=== PATIENT | female | born 1965 | race Caucasian/White ===

== ENCOUNTER 2023-03-10 19:25 | Inpatient (IN) | payer BC ==
--- OUTSIDE RECORDS SUMMARY | 2023-03-10 19:28 | XMS REPORT | Continuity of Care Document ---
:1965 Author Organization [facility] t Address [address] 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 00:00: Hospit a region region 00 l without without myelopathy myelopathy or or radiculopa radiculopa thy thy Spondylosi Spondylosi Disease Active M ethodi s of s of 6-14 st lumbosacra lumbosacra 00:00: Ho spita l region l region 00 l without without myelopathy myelopathy or or radiculopa radiculopa thy thy Chronic Chronic Disease Active Methodi midline midline 02-03 low back low back 00:00: Hospit a pain pain 00 l without without sciatica sciatica Encounter Encounter Disease Active Met hodi for for 6-14 long-term long-term 00:00: Hosp [facility] (current) (current) 00 l use of use of high-risk high-risk medication medication Obesity Obesity Disease Active Methodi (BMI (BMI -14 st 35.0-39.9 35.0-39.9 00:00: Hosp [facility] without without 00 l comorbidit comorbidit y) y) Systemic Systemic Disease Active Metho di Rheumatoid Rheumatoid 03-10 arthritis arthritis 00:00: Hosp [facility]ya RF 219 CCP RF 219 CCP 00 l 250 250 Type 2 Type 2 Disease Active Methodi diabetes diabetes 03-10 mellitus mellitus 00:00: Hospit a without without 00 l complicati complicati on on Hypertensi Hypertensi Disease Active M ethodi on on 03-10 00:00: Hospita 00 l Allergies, Adverse Reactions, Alerts Allergy Allergy Status Severity Reaction(s) Onset Inactive Treating Comm ents Source Name Type Date Date Clinician No Known Propensi Active Method i Drug ty to 02-02 Allergie adverse 00:00: Hospita s reaction 00 l s to drug NO KNOWN Drug Active [facility] ALLERG Class ity of S [facility] Family History Family Member Diagnosis Comments Start Date Stop Date Source Natural sister Tuberculosis [facility] Natural sister Colon cancer [facility] Natural mother Alcohol abuse [facility] Natural mother Cirrhosis [facility] mother Tuberculosis [facility] Paternal grandfather Lung cancer [facility] Paternal grandmother Breast cancer [facility] Paternal grandmother Lung cancer [facility] Social History Social Habit Start Date Stop Date Quantity Comments Source Exposure to Not sure [facility] SARS-CoV-2 (event) [facility] Gender identity [facility] [place] Sexual orientation [facility] History of Social 2017-02-03 2017-02-03 [facility] function 00:00:00 00:00:00 Alcohol Comment 2016-02-03 2016-02-[address] [facility] [place] 00:00:00 00:00:00 Sex [birth year] [facility] 00:00:00 00:00:00 Smoking Status Start Date Stop Date Source Unknown if ever smoked [facility] Never smoked tobacco [facility] Medications Ordered Filled Start Stop Current Ordering Indication Dosage Frequency Signature Comments Components Source Medication Medication Date Date Medication? Clinician (SIG) Name Name HYDROcodone 2019- 2020- No 1{tbl} 1 tablet, Univers -acetaminop 08-30 Oral, ity of hen (NORCO 09:00: 08:08 ONCE, 1 Jacinto as 5) 5-325 mg 00 :00 dose, Sun Med ical tablet 1 06/30/[address] [facility] h tablet 0300, WILFRIDO acetaminoph 2019-08 Yes 4647 1{tbl} Take 1 Un bridgette en-codeine 1-08 tablet by ity of (TYLENOL-CO 00:00: mouth [place] DEINE #3) 00 every 6 Medical 300-30 mg (six) Branch tablet hours as needed for Pain (scale 7-10). Indication s: acute pain baclofen 2017-08 Yes TAKE 1-2 Metho di (LIORESAL) 1-[address] 10 MG 00:00: MOUTH Hospita tablet 00 EVERY l EVENING NEEDED FOR MUSCLE SPASM losartan Yes losartan Metho di (COZAAR) 4-[address] 100 MG 12:17: tablet Hospita tablet 12 l diazePAM Yes Take one Metho di (VALIUM) 10 1-[address] MG tablet 00:00: at 9pm Hospit a 00 every l night. Vital Signs Vital Name Observation Time Observation Value Comments Source Systolic blood 2020-06-30 07:27:00 169 mm[Hg[facility] Diastolic blood 2020-06-30 07:27:00 78 mm[Hg] [facility] Heart rate 2020-06-30 07:27:00 84 /min [facility] Body temperature 2020-06-30 07:27:00 38.17 Monik [facility] Respiratory rate 2020-06-30 07:27:00 18 /min [facility] Body height 2020-06-30 07:27:00 165.1 cm [facility] Body weight 2020-06-30 07:27:00 102.059 kg [facility] BMI 2020-06-30 07:27:00 37.44 kg/m2 [facility] Oxygen saturation in 2020-06-30 07:27:00 98 /min [facility] Arterial blood by [facility] Pulse oximetry Branch Procedures Procedure Date / Time Performed Performing Clinician Justenc e XR ANKLE 3+ VW LEFT 2020-06-30 08:19:49 Naye Caraballo [facility] NOTICE OF PRIVACY 2020-06-30 07:18:09 Doctor Unassigned, No [facility] CONSENT/REFUSAL FOR 2020-06-30 07:17:07 [facility] TREATMENT Plan of Care Planned Activity Planned Date Details Comments Source Future Scheduled 2023-02-10 [facility] Test 11:01:48 malignant neoplasm of colon (procedure) [code = 380214253] Future Scheduled 2023-02-10 [facility] Test 11:01:48 malignant neoplasm of colon (procedure) [code = 438012008] Future Scheduled 2023-02-10 [facility] Test 11:01:48 malignant neoplasm of colon (procedure) [code = 759511612] Future Scheduled 2023-02-10 [facility]:01:[facility] (#1) [code = COVID-19 VACCINE (#1)] Future Scheduled 2023-02-10 [facility] Test 11:01:48 malignant neoplasm of cervix (procedure) [code = 385838812] Future Scheduled 2023-02-10 [facility]48 S[facility]ENING [code = BREAST CANCER SCREENING] Future Scheduled 2023-02-10 [facility] 11:01:48 malignant neoplasm of colon (procedure) [code = 483570815] Future Scheduled 2023-02-10 [facility] Test 11:01:48 malignant neoplasm of colon (procedure) [code = 875670162] Future Scheduled 2023-02-10 SHINGLES VACCINES [facility] Test 11:01:48 (1 of 2) [code = SHINGLES VACCINES (1 of 2)] Future Scheduled 2023-02-10 [facility] 11:01:48 [code = INFLUENZA VACCINE] Encounters Start End Encounter Admission Attending Care Care Encounter Source Date/Time Date/Time Type Type Clinicians Facility Department ID 2022-09-01 2022-09-01 Outpatient ADELITA GREENBERG [facility] [id number] [place] 10:56:00 10:56:00 -[id number] [facility] 2020-06-30 2020-06-[address] [facility] [id number] [facility] 01:31:00 03:11:00 Naye Sanchez [id number] i ty of [place] [id number] [facility] [id number] [facility] 084 Branch 2020-06-30 2020-06-30 Emergency X ILYA NMCHETNA ERT [id number] [facility] 01:31:00 01:31:00 NAYE armstrong [facility] Results This patient has no known results.
--- NOTE | 2023-03-10 20:48 | ER ---
Nurse's Notes [facility] Name: Yaneth Caldwell Age: 57 yrs Sex: Female : 1965 Arrival Date: 03/10/2023 Time: 19:25 Bed 19 Private MD: Diagnosis: Allergy status to unspecified drugs, medicaments and biological substances status-Humaria;Fever, unspecified;Influenza due to unidentified influenza virus with other respiratory manifestations-flu B;Hypokalemia Presentation: 03/10 19:39 Chief complaint: Patient states: I had my first shot of angy on the 10 th and on the kd3 17th i noticed my cheeks were red and dry. And then in this morning i broke out in a fever and i had a head to toe rash. I contacted my doctor VIA telehealth but i don't know if i can take the medications they prescribed me with angy. Coronavirus screen: Vaccine status: Patient reports being unvaccinated. Ebola Screen: No symptoms or risks identified at this time. Onset: The symptoms/episode began/occurred gradually. Anaphylaxis evaluation, no signs or symptoms of anaphylaxis were noted. Initial Sepsis Screen: Does the patient meet any 2 criteria? No. Patient's initial sepsis screen is negative. Does the patient have a suspected source of infection? No. Patient's initial sepsis screen is negative. Risk Assessment: Do you want to hurt yourself or someone else? Patient reports no desire to harm self or others. Onset of symptoms was March 08, 2023. 19:39 Method Of Arrival: Wheelchair kd3 19:39 Acuity: ELVIA 3 kd3 Triage Assessment: 19:45 General: Appears uncomfortable, Behavior is calm, cooperative. Pain: Complains of pain kd3 in rash. Historical: - Allergies: 19:45 No Known Allergies; kd3 - Immunization history:: Adult Immunizations up to date. - Social history:: Smoking status: Patient denies any tobacco usage or history of. Screenin/20 00:04 [facility] ED Fall Risk Assessment (Adult) History of falling in the last 3 months, jb4 including since admission No falls in past 3 months (0 pts) Confusion or Disorientation No (0 pts) Score/Fall Risk Level 0 - 2 = Low Risk. Abuse screen: Denies threats or abuse. Nutritional screening: No deficits noted. Tuberculosis screening: No symptoms or risk factors identified. Assessment: 03/10 20:00 General: Appears in no apparent distress. uncomfortable, ill, Behavior is calm, jb4 cooperative, appropriate for age. Pain: Denies pain. Neuro: Level of Consciousness is awake, alert, obeys commands, Oriented to person, place, time, situation. Cardiovascular: Patient's skin is warm and dry. Respiratory: Airway is patent Respiratory effort is even, unlabored, Respiratory pattern is regular, symmetrical. GI: No signs and/or symptoms were reported involving the gastrointestinal system. : No signs and/or symptoms were reported regarding the genitourinary system. EENT: No signs and/or symptoms were reported regarding the EENT system. Derm: Skin is intact, Skin is pink, warm \T\ dry. 21:00 Reassessment: Patient appears in no apparent distress at this time. Patient and/or jb4 family updated on plan of care and expected duration. Pain level reassessed. Patient is alert, oriented x 3, equal unlabored respirations, skin warm/dry/pink. 22:00 Reassessment: Patient appears in no apparent distress at this time. Patient and/or jb4 family updated on plan of care and expected duration. Pain level reassessed. Patient is alert, oriented x 3, equal unlabored respirations, skin warm/dry/pink. 23:00 Reassessment: Patient appears in no apparent distress at this time. Patient and/or jb4 family updated on plan of care and expected duration. Pain level reassessed. Patient is alert, oriented x 3, equal unlabored respirations, skin warm/dry/pink. Vital Signs: 19:39 BP 121 / 66; Pulse 86; Resp 16; Pulse Ox 100% on R/A; kd3 19:39 Temp 99.2(O); kd3 19:39 Weight 101.15 kg; kd3 22:30 BP 104 / 53; Pulse 85; Resp 16; Pulse Ox 95% on R/A; jb4 23:14 BP 109 / 56; Pulse 78; Resp 16; Pulse Ox 97% ; jb4 ED Course: 19:27 Patient arrived in ED. am2 19:45 Triage completed. kd3 19:45 Arm band placed on right wrist. kd3 20:00 Patient has correct armband on for positive identification. Bed in low position. Call jb4 light in reach. Side rails up X 1. Client placed on continuous cardiac and pulse oximetry monitoring. NIBP monitoring applied. 20:02 James Patiño MD is Attending Physician. [facility] 20:45 Mark Bermeo MD is Hospitalizing Provider. [facility] 21:00 Inserted saline lock: 20 gauge in right antecubital area, using aseptic technique. oe Blood collected. 21:12 Comprehensive Metabolic Panel Sent. oe 21:12 CBC with Diff Sent. oe 21:13 CRP Sent. oe 21:13 Procalcitonin Sent. oe 21:13 SARS-COV-2 RT PCR Sent. oe 21:13 Flu Sent. oe 21:13 Lactate w/ 2H reflex if indic. Sent. oe 21:19 Lactate w/ 2H reflex if indic. Sent. oe 21:20 Chest Single View XRAY In Process Unspecified. EDMS 21:20 Blood Culture Adult (2) Sent. oe 22:17 Andrés Lentz, RN is Primary Nurse. jb4 03/11 00:04 No provider procedures requiring assistance completed. Patient admitted, IV remains in jb4 place. Administered Medications: 03/10 21:46 Drug: Famotidine IVP 40 mg Route: IVP; Site: right antecubital; jb4 21:46 Drug: MethylPrednisoLONE IVP 125 mg Route: IVP; Site: right antecubital; jb4 21:46 Drug: NS 0.9% IV 1000 ml Route: IV; Rate: 1 bolus; Site: right antecubital; jb4 21:46 Drug: Acetaminophen PO 1000 mg Route: PO; jb4 21:47 Drug: NS 0.9% IV 1000 ml Route: IV; Rate: 1 bolus; Site: right antecubital; jb4 21:47 Drug: diphenhydrAMINE IVP 25 mg Route: IVP; Site: right antecubital; jb4 22:17 Drug: levofloxacin IVPB 500 mg Volume: 100 ml; Route: IVPB; Infused Over: 60 mins; jb4 Site: right antecubital; 23:13 Drug: Oseltamivir PO 75 mg Route: PO; jb4 23:23 Drug: Potassium PO Effervescent Tablet 25 mEq Route: PO; jb4 Outcome: 20:48 Decision to Hospitalize by Provider. [facility] 03/11 00:04 Admitted to Tele accompanied by tech, via wheelchair, room 224, with chart, Report jb4 called to BARBARA Dang 00:05 Condition: stable jb 00:05 Discharge instructions given to patient, Instructed on the need for admit, Demonstrated understanding of instructions. 00:05 Patient left the ED. jb4 Signatures: Dispatcher [employer] James Severino MD MD cha Bryson, James, RN RN jb4 Loki Zuluaga Amanda am2 Doucette, Kyli RN RN kd3 Corrections: (The following items were deleted from the chart) 00:05 00:04 Admitted to jbDestiny jb4
--- NOTE | 2023-03-10 20:48 | EDPHYS ---
Physician Documentation [facility] Name: Yaneth Caldwell Age: 57 yrs Sex: Female : 1965 Arrival Date: 03/10/2023 Time: 19:25 Bed 19 Private MD: JOAQUIN Physician James Patiño HPI: 03/10 20:27 This 57 yrs old Female presents to ER via Wheelchair with complaints of Rash, carmina Allergic Reaction. 20:27 This 57 yrs old Female presents to ER via Wheelchair with complaints of Rash, Allergic carmina Reaction. 20:27 The patient's rash thought to be caused by medication. The rash is located on the body carmina diffusely. The rash can be described as erythematous, patchy, raised. Onset: The symptoms/episode began/occurred 2 day(s) ago. Associated signs and symptoms: Pertinent positives: burning sensation, nausea. Severity of symptoms: At their worst the symptoms were moderate in the emergency department the symptoms are unchanged. The patient has not experienced similar symptoms in the past. Historical: - Allergies: 19:45 No Known Allergies; kd3 - Immunization history:: Adult Immunizations up to date. - Social history:: Smoking status: Patient denies any tobacco usage or history of. ROS: 20:28 Eyes: Negative for injury, pain, redness, and discharge, ENT: Negative for injury, carmina pain, and discharge, Neck: Negative for injury, pain, and swelling, Cardiovascular: Negative for chest pain, palpitations, and edema, Respiratory: Negative for shortness of breath, cough, wheezing, and pleuritic chest pain, Abdomen/GI: Negative for abdominal pain, nausea, vomiting, diarrhea, and constipation, Back: Negative for injury and pain, : Negative for injury, bleeding, discharge, and swelling, MS/Extremity: Negative for injury and deformity, Neuro: Negative for headache, weakness, numbness, tingling, and seizure, Psych: Negative for depression, anxiety, suicide ideation, homicidal ideation, and hallucinations, Allergy/Immunology: Negative for hives, rash, and allergies, Endocrine: Negative for neck swelling, polydipsia, polyuria, polyphagia, and marked weight changes, Hematologic/Lymphatic: Negative for swollen nodes, abnormal bleeding, and unusual bruising. 20:28 Constitutional: Positive for body aches, chills, fever, malaise. 20:28 Skin: Positive for erythema, rash, diffusely. Exam: 20:28 Head/Face: Normocephalic, atraumatic. Eyes: Pupils equal round and reactive to light, carmina extra-ocular motions intact. Lids and lashes normal. Conjunctiva and sclera are non-icteric and not injected. Cornea within normal limits. Periorbital areas with no swelling, redness, or edema. ENT: Nares patent. No nasal discharge, no septal abnormalities noted. Tympanic membranes are normal and external auditory canals are clear. Oropharynx with no redness, swelling, or masses, exudates, or evidence of obstruction, uvula midline. Mucous membranes moist. Neck: Trachea midline, no thyromegaly or masses palpated, and no cervical lymphadenopathy. Supple, full range of motion without nuchal rigidity, or vertebral point tenderness. No Meningismus. Chest/axilla: Normal chest wall appearance and motion. Nontender with no deformity. No lesions are appreciated. Cardiovascular: Regular rate and rhythm with a normal S1 and S2. No gallops, murmurs, or rubs. Normal PMI, no JVD. No pulse deficits. Respiratory: Lungs have equal breath sounds bilaterally, clear to auscultation and percussion. No rales, rhonchi or wheezes noted. No increased work of breathing, no retractions or nasal flaring. Abdomen/GI: Soft, non-tender, with normal bowel sounds. No distension or tympany. No guarding or rebound. No evidence of tenderness throughout. Back: No spinal tenderness. No costovertebral tenderness. Full range of motion. Female : Normal external genitalia. MS/ Extremity: Pulses equal, no cyanosis. Neurovascular intact. Full, normal range of motion. Neuro: Awake and alert, GCS 15, oriented to person, place, time, and situation. Cranial nerves II-XII grossly intact. Motor strength 5/5 in all extremities. Sensory grossly intact. Cerebellar exam normal. Normal gait. Psych: Awake, alert, with orientation to person, place and time. Behavior, mood, and affect are within normal limits. 20:28 Cardiovascular: Rate: normal, Rhythm: regular, Pulses: no pulse deficits are appreciated, Pulses are 4+ in bilateral radial, brachial, femoral, popliteal, posterior tibial and and dorsalis pedis arteries.. 20:28 Skin: Appearance: Color: erythematous, Temperature: warm, abscess, not appreciated, cellulitis, is not appreciated, induration, is not appreciated, rash can be described as erythematous, raised, and is diffusely located. 20:28 Neuro: Orientation: is normal, appropriate for stated age, no acute changes, Mentation: is normal, appropriate for stated age, no acute changes, Memory: is normal, appropriate for stated age, no acute changes, Cranial nerves: grossly normal, is grossly normal based on the patient's age, no acute changes, Cerebellar function: is grossly normal, Gait: not tested. seizure activity, is not displayed by the patient. 20:44 ECG was reviewed by the Attending Physician. [facility] Vital Signs: 19:39 BP 121 / 66; Pulse 86; Resp 16; Pulse Ox 100% on R/A; kd3 19:39 Temp 99.2(O); kd3 19:39 Weight 101.15 kg; kd3 22:30 BP 104 / 53; Pulse 85; Resp 16; Pulse Ox 95% on R/A; jb4 23:14 BP 109 / 56; Pulse 78; Resp 16; Pulse Ox 97% ; jb4 MDM: 20:02 Patient medically screened. carmina 20:31 Differential diagnosis: allergic reaction, viral Infection, bacterial infection, URI, carmina bronchitis, pneumonia UTI, gastroenteritis, meningitis. Differential Diagnosis altered mental status, sepsis. Data reviewed: vital signs, nurses notes, lab test result(s), EKG, radiologic studies, plain films. Consideration of Admission/Observation Patient was admitted/placed on observation. Escalation of care including admission/observation considered. I considered the following discharge prescriptions or medication management in the emergency department Medications were administered in the Emergency Department. See MAR. Independent interpretation of the following test(s) in the Emergency Department EKG: See my EKG interpretation above. Test considered but Not performed: CT: no ct. External Records Reviewed:. Care significantly affected by the following chronic conditions: Obesity, ra, . Counseling: I had a detailed discussion with the patient and/or guardian regarding: the historical points, exam findings, and any diagnostic results supporting the discharge/admit diagnosis, lab results, radiology results, the need for further work-up and treatment in the hospital. 03/10 20:06 Order name: CBC with Diff; Complete Time: 22:49 carmina 03/10 20:06 Order name: Comprehensive Metabolic Panel; Complete Time: 21:43 [facility] 03/10 20:06 Order name: Urinalysis w/ reflexes [facility] 03/10 20:06 Order name: Troponin High Sensitivity; Complete Time: 21:43 [facility] 03/10 20:07 Order name: Blood Culture Adult (2) [facility] 03/10 20:07 Order name: Lactate w/ 2H reflex if indic.; Complete Time: 21:43 [facility] 03/10 20:33 Order name: Flu; Complete Time: 22:49 [facility] 03/10 20:33 Order name: SARS-COV-2 RT PCR; Complete Time: 22:49 [facility] 03/10 20:51 Order name: Procalcitonin; Complete Time: 21:59 [facility] 03/10 20:51 Order name: CRP; Complete Time: 21:43 [facility] 03/10 22:31 Order name: Manual Differential; Complete Time: 22:49 [facility] 03/10 20:06 Order name: Chest Single View XRAY; Complete Time: 21:34 [facility] 03/10 20:06 Order name: EKG; Complete Time: 20:07 [facility] 03/10 20:06 Order name: EKG - Nurse/Tech; Complete Time: 21:12 [facility] EC:44 Rate is 87 beats/min. Rhythm is regular. QRS Sparkman is Normal. NE interval is normal. QRS carmina interval is normal. QT interval is normal. No Q waves. T waves are Normal. No ST changes noted. Clinical impression: Normal ECG and No evidence of ischemia. Interpreted by me. Reviewed by me. Administered Medications: 21:46 Drug: Famotidine IVP 40 mg Route: IVP; Site: right antecubital; jb4 21:46 Drug: MethylPrednisoLONE IVP 125 mg Route: IVP; Site: right antecubital; jb4 21:46 Drug: NS 0.9% IV 1000 ml Route: IV; Rate: 1 bolus; Site: right antecubital; jb4 21:46 Drug: Acetaminophen PO 1000 mg Route: PO; jb4 21:47 Drug: NS 0.9% IV 1000 ml Route: IV; Rate: 1 bolus; Site: right antecubital; jb4 21:47 Drug: diphenhydrAMINE IVP 25 mg Route: IVP; Site: right antecubital; jb4 22:17 Drug: levofloxacin IVPB 500 mg Volume: 100 ml; Route: IVPB; Infused Over: 60 mins; jb4 Site: right antecubital; 23:13 Drug: Oseltamivir PO 75 mg Route: PO; jb4 23:23 Drug: Potassium PO Effervescent Tablet 25 mEq Route: PO; jb4 Disposition Summary: 03/10/23 20:48 Hospitalization Ordered Hospitalization Status: Inpatient Admission carmina Provider: Mark Bermeo cha Location: Telemetry/MedSurg (Inpatient) carmina Condition: Fair carmina Problem: new carmina Symptoms: are unchanged carmina Bed/Room Type: Standard [facility] Room Assignment: 224(03/10/23 23:01) cg Diagnosis - Allergy status to unspecified drugs, medicaments and biological substances status - carmina Humaria - Fever, unspecified acrmina - Influenza due to unidentified influenza virus with other respiratory manifestations carmina - flu B - Hypokalemia carmina Forms: - Medication Reconciliation Form carmina - SBAR form [facility] Signatures: Dispatcher [employer] EDJames Kendrick MD MD cha Attema, Lee, CONTINUOUS IMPROVEMENT LEAD-C CONTINUOUS IMPROVEMENT LEAD-Cla1 Ashley Gusman RN RN Andrés Lentz RN RN jb4 Jocelynn Stanford RN RN kd3 Corrections: (The following items were deleted from the chart) 23: 20:48 carmina cg
[2023-03-10 21:28] LABS: Absolute Lymphocytes (CBC) 0.4 K/uL (0.7-4.9); Hematocrit 42.7 % (36.0-45.0); MCV 88.8 fL (80-100); MPV 8.6 fL (7.6-11.3)
--- NOTE | 2023-03-10 21:32 | RAD REPORT ---
EXAM DESCRIPTION: Carlos Single View03/10/2023 9:17 pm CLINICAL HISTORY: Cough COMPARISON: none FINDINGS: The lungs appear clear of acute infiltrate. The heart is normal size IMPRESSION: No acute abnormalities displayed
[2023-03-10] MEDS ORDERED: ACETAMINOPHEN 500 MG TAB ONE (21:36)
[2023-03-10] MEDS ORDERED: METHYLPREDNISOLONE 125 MG INJ ONE (21:36)
[2023-03-10] MEDS ORDERED: DIPHENHYDRAMINE 50 MG/ML VIAL ONE (21:36)
[2023-03-10] MEDS ORDERED: Levofloxacin500mg IV 500 MG/100 ML BAG IV ONE (21:37)
[2023-03-10] MEDS ORDERED: FAMOTIDINE 20 MG/2 ML VIAL IV ONE ×2 (21:37→21:38)
[2023-03-10] MEDS ORDERED: NA CHLORIDE 0.9% 2,000 ML ONE (21:37)
[2023-03-10 21:42] LABS: Albumin 3.5 g/dL (3.4-5.0); Potassium 3.2 mEq/L (3.5-5.1); Protein, Total 7.9 g/dL (6.4-8.2)
[2023-03-10 22:44] LABS: Blood Morphology Comment NOT SEEN (NOT SEEN); Platelet Estimate ADEQ
[2023-03-10] MEDS ORDERED: OSELTAMIVIR 75 MG CAP PO ONE (23:21)
[2023-03-10] MEDS ORDERED: POTASSIUM 25 MEQ EFFERV TAB ONE (23:26)
--- NOTE | 2023-03-11 00:02 | P.HP ---
Certification for Inpatient Patient admitted to: Inpatient With expected LOS: >2 Midnights Patient will require the following post-hospital care: None Practitioner: I am a practitioner with admitting privileges, knowledge of patient current condition, hospital course, and medical plan of care. Services: Services provided to patient in accordance with Admission requirements found in Title 42 Section 412.3 of the Code of Federal Regulations Patient History Date of Service: 03/10/23 Reason for admission: Rash, fever History of Present Illness: 57-year-old female with history of rheumatoid arthritis, hypertension presents emergency department with chief complaint of fevers, rash. 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 The rash is itchy/painful described as burning she does have a classic malar rash on her face. She does report chills, subjective fevers at home as well. She was evaluated in the emergency department her labs were significant for bandemia 15% bands, 85.6% neutrophils white blood cell count of 6.1 sodium 132 potassium 3.2 creatinine 1.03 C- reactive protein 31.4 procalcitonin 0.07 she did test positive for influenza B, she was given Solu-Medrol, Benadryl, Levaquin, Tamiflu in the ED. - Past Medical/Surgical History -: Rheumatoid arthritis -: Hypertension -: Hysterectomy -: Cholecystectomy Psychosocial/ Personal History: Patient lives at home with her - Family History Father -: Cancer (:) - Social History Smoking Status: Never smoker Alcohol use: No CD- Drugs: No Caffeine use: Yes Place of Residence: Home Review of Systems 10-point ROS is otherwise unremarkable General: Fever, Chills, Weakness, Malaise, Other (Myalgias) Integumentary: Rash, As per HPI Physical Examination - Physical Exam General: Alert, In no apparent distress, Oriented x3 HEENT: Atraumatic, PERRLA, Mucous membr. moist/pink, EOMI, Sclerae nonicteric Neck: Supple, 2+ carotid pulse no bruit, No LAD, Without JVD or thyroid abnormality Respiratory: Clear to auscultation bilaterally, Normal air movement Cardiovascular: Regular rate/rhythm, Normal S1 S2 Capillary refill: <2 Seconds Gastrointestinal: Normal bowel sounds, No tenderness Musculoskeletal: No tenderness Integumentary: Rash(es) (Malar rash present, erythematous, blanchable, elevated patchy rash present to face, arms, trunk, lower extremities improving after steroids) Neurological: Normal gait, Normal speech, Normal strength at 5/5 x4 extr, Normal tone, Normal affect Lymphatics: No axilla or inguinal lymphadenopathy - Studies Laboratory Data (last 24 hrs) 03/10/23 20:55: Sodium 132 L, Potassium 3.2 L, BUN 15, Creatinine 1.03 H, Glucose 130 H, Total Bilirubin 1.0, AST 24, ALT 29, Alkaline Phosphatase 70 03/10/23 20:55: WBC 6.10, Hgb 14.4, Hct 42.7, Plt Count 259 Microbiology Data (last 24 hrs): 03/10/23 20:55 Nasopharnyx Influenza Type A Antigen Screen - Final 03/10/23 20:55 Nasopharnyx Influenza Type B Antigen Screen - Final Assessment and Plan - Plan Assessment: Influenza B Skin eruption Rheumatoid arthritis Hypertension Plan: Influenza B Tamiflu ordered Skin eruption Likely related to initiation of Humira on 03/01/2023, there is consideration for drug-induced lupus given her malar rash, myalgias, low-grade fever although she also has influenza B. Continue corticosteroids, recommend cessation of Humira. Rash encompasses most of her body surface area and is painful, itchy. Rheumatoid arthritis Recommend discontinuation of Humira, patient went to follow-up with her 2nd grade teacher for further recommendations regards to her arthritis. Hypertension Continue home medications. DVT PPX: Lovenox Code status: Full Discharge Plan: Home Plan to discharge in: 48 Hours - Advance Directives Does patient have a Living Will: No Does patient have a Durable POA for Healthcare: No - Code Status/Comfort Care Code Status Assessed: Yes (Full code) Critical Care: No Time Spent Managing Pts Care (In Minutes): 55
[2023-03-11] MEDS ORDERED: HYDROCODONE/APAP 5/325 MG TAB PO PRN (00:07)
[2023-03-11 00:19] LABS: Specific Gravity 1.021 (1.005-1.030); Urine Bacteria <20 /HPF (<20); Urine Bilirubin NEGATIVE (Negative); Urine Blood 1+ (Negative); Urine Clarity Turbid (Clear); Urine Color Yellow (Yellow); Urine Glucose NEGATIVE (Negative); Urine Mucus Slight /HPF (None Seen); Urine Protein TRACE (Negative); Urine Urobilinogen Normal (Normal)
[2023-03-11 00:22] VITALS: BMI 37.0
[2023-03-11] MEDS: NA CHLORIDE 0.9% 1,000 ML IV SCH ×3 (00:55→21:48)
[2023-03-11] MEDS: hydrOXYzine HCL 25 MG TAB PO PRN ×4 (02:51→21:49)
[2023-03-11] MEDS: ACETAMINOPHEN 500 MG TAB PO PRN ×2 (02:51→08:19)
[2023-03-11 04:02] LABS: Absolute Lymphocytes (CBC) 0.5 K/uL (0.7-4.9); Hematocrit 37.7 % (36.0-45.0); Lymphocytes % 6.7 % (15.3-44.8); MCV 88.6 fL (80-100); MPV 8.9 fL (7.6-11.3); RBC Red Blood Cell Count 4.26 M/uL (3.86-4.86)
[2023-03-11 04:23] LABS: Albumin 2.9 g/dL (3.4-5.0); Bilirubin Total 0.8 mg/dL (0.2-1.0); Potassium 3.3 mEq/L (3.5-5.1); Protein, Total 6.8 g/dL (6.4-8.2); Thyroid Stimulating Hormone 0.351 uIU/mL (0.358-3.740)
[2023-03-11] MEDS ORDERED: METHYLPREDNISOLONE 40 MG INJ IV SCH (06:00)
[2023-03-11] MEDS: ENOXAPARIN 40 MG/0.4 ML SQ SCH (08:18)
[2023-03-11] MEDS: OSELTAMIVIR 75 MG CAP PO SCH ×2 (08:19→21:47)
[2023-03-11] MEDS: METHYLPREDNISOLONE 40 MG INJ IV SCH ×2 (08:19→21:47)
[2023-03-11] MEDS ORDERED: POTASSIUM CL SA 10 MEQ TAB PO ONE (09:00)
--- NOTE | 2023-03-11 12:02 | EKG ---
Test Date: 2023-03-10 Test Time: 20:36:44 Agricultural Sales Representative: CHARU MEASUREMENT RESULTS: Intervals: Rate: 87 OH: 158 QRSD: 82 QT: 362 QTc: 435 [place]: P: 33 OH: 158 QRS: 47 T: 8 INTERPRETIVE STATEMENTS: Normal sinus rhythm Normal ECG No previous ECG available for comparison Electronically Signed On 03-11-23 12:01:52 CDT by Javi Gibson
--- NOTE | 2023-03-11 19:52 | P.PN ---
Subjective Date of Service: 03/11/23 Chief Complaint: Rash, fever No acute events since admission. She reports recently receiving her first dose of adalimumab on 03/01/2023. She states that a few days ago, she developed a diffuse body rash. She denies any chills, chest pain, or shortness of breath. She reports malaise, low-grade fever, and generalized myalgias. Review of Systems 10-point ROS is otherwise unremarkable General: Fever, Malaise Integumentary: Rash Physical Examination - Vital Signs Temperature: 98 F Blood Pressure: 101/54 Pulse: 66 Respirations: 16 Pulse Ox (%): 96 - Physical Exam General: Alert, In no apparent distress, Oriented x3 HEENT: Atraumatic, Mucous membr. moist/pink, Sclerae nonicteric Neck: JVD not distended Respiratory: Clear to auscultation bilaterally, Normal air movement Cardiovascular: No edema, Regular rate/rhythm, Normal S1 S2, No gallops, No rubs, No murmurs Gastrointestinal: Normal bowel sounds, Soft and benign, Non-distended, No tenderness, No rebound, No guarding Musculoskeletal: No clubbing Integumentary: Other (diffuse erythematous plaques and papules involving the trunk and bilateral upper/lower extremitis. Prominent malar rash appreciated, Bedside RN - Vandana present for exam) Neurological: Normal speech, Normal affect - Studies Laboratory Data (last 24 hrs) 03/10/23 20:55: Sodium 132 L, Potassium 3.2 L, BUN 15, Creatinine 1.03 H, Glucose 130 H, Total Bilirubin 1.0, AST 24, ALT 29, Alkaline Phosphatase 70 03/10/23 20:55: WBC 6.10, Hgb 14.4, Hct 42.7, Plt Count 259 Microbiology Data (last 24 hrs): 03/10/23 20:55 Nasopharnyx Influenza Type A Antigen Screen - Final 03/10/23 20:55 Nasopharnyx Influenza Type B Antigen Screen - Final Assessment And Plan - Plan # Diffuse Skin Rash - concern for Drug-Induced Lupus # Rheumatoid Arthritis - Given the timing of her rash with her first dose of adalimumab as well as her prominent malar rash, there is high concern for drug-induced lupus. - Did not order YEIMI as this will likely be positive due to RA - Continue methylprednisone, will likely require extended steroid taper at discharge - Continue PRN hydroxyzine - Monitor for signs of organ involvement - Hold adalimumab # Influenza B Infection - Continue oseltamivir # Hypertension - Reconcile home medications once verified Mark Bermeo M.D.
[2023-03-12 04:00] LABS: Hematocrit 37.2 % (36.0-45.0); MCV 90.6 fL (80-100); MPV 9.3 fL (7.6-11.3); RBC Red Blood Cell Count 4.11 M/uL (3.86-4.86)
[2023-03-12 04:11] LABS: Albumin 3.1 g/dL (3.4-5.0); Bilirubin Total 0.4 mg/dL (0.2-1.0); Potassium 3.6 mEq/L (3.5-5.1)
[2023-03-12] MEDS: NA CHLORIDE 0.9% 1,000 ML IV SCH ×2 (06:37→17:20)
[2023-03-12] MEDS: ACETAMINOPHEN 500 MG TAB PO PRN (08:35)
[2023-03-12] MEDS: METHYLPREDNISOLONE 40 MG INJ IV SCH ×2 (08:35→20:54)
[2023-03-12] MEDS: ENOXAPARIN 40 MG/0.4 ML SQ SCH (08:35)
[2023-03-12] MEDS: OSELTAMIVIR 75 MG CAP PO SCH ×2 (08:35→20:54)
[2023-03-12] MEDS ORDERED: POTASSIUM CL SA 10 MEQ TAB PO ONE (09:00)
[2023-03-12 09:49] VITALS: O2SAT 96
[2023-03-12] MEDS: hydrOXYzine HCL 25 MG TAB PO PRN ×2 (12:38→20:54)
[2023-03-12 20:14] LABS: Urine Bacteria <20 /HPF (<20); Urine RBC <5 /HPF (None Seen)
[2023-03-12 20:46] LABS: Urine Bilirubin NEGATIVE (Negative); Urine Blood Trace (Negative); Urine Clarity Clear (Clear); Urine Color Light-Yellow (Yellow); Urine Glucose NEGATIVE (Negative); Urine Protein NEGATIVE (Negative); Urine Urobilinogen Normal (Normal)
--- NOTE | 2023-03-12 21:01 | P.DS ---
Admission Date: 03/10/23 Discharge Date: 03/12/23 Disposition: ROUTINE DISCHARGE Discharge Condition: GOOD Reason for Admission: Rash, fever Hospital Course: DIAGNOSES: # Diffuse Skin Rash - concern for Drug-Induced Lupus # Influenza B Infection # Steroid-Induced Hyperglycemia and Leukocytosis # Subclinical Hypothyroidism # Rheumatoid Arthritis # Hypertension HOSPITAL COURSE: Ms. Yaneth Caldwell is a pleasant 57 year old female with a past medical history significant for rheumatoid arthritis and hypertension who was admitted to the [facility] on 03/10/2023 for a malaise, low-grade fever, myalgias, and a diffuse skin rash. She was admitted to the Medicine service. Given the timing of her rash with her first dose of adalimumab as well as her prominent malar rash, there is high concern for drug-induced lupus. There was no evidence of mucocutaneous involvement. She was treated with IV methylprednisone and, over the course of her hospitalization, her rash improved significantly. Incidentally, she was found to test positive for influenza B, for which she was started on oseltamivir. Today, she stated that she felt significantly better and would like to be discharged home. For her rash, she was discharged with a prednisone taper. I attempted to contact her desk officer (Dr. Walsh) to update him, but was unsuccessful. On 03/12/2023, she was seen on rounds and deemed medically stable for discharge. She was discharged with instructions to schedule follow-up appointments with her PCP (Dr. Lafleur) and with her Sales Engagement Executive (Dr. Walsh). She was provided prescriptions for prednisone, hydroxyzine, and oseltamivir. She was given the opportunity to ask questions and reported no further questions. Furthermore, all questions were answered to the best of my ability. A copy of this discharge summary will be sent to the above providers to facilitate continuity of care. Today, I personally spent 25 minutes on her case, of which greater than 50% of the time was spent in patient education, counseling, and coordination of care as described above. - Physical Exam General: Alert, In no apparent distress, Oriented x3 HEENT: Atraumatic, Mucous membr. moist/pink, Sclerae nonicteric Respiratory: Clear to auscultation bilaterally, Normal air movement Cardiovascular: No edema, Regular rate/rhythm, No murmurs Gastrointestinal: Soft, Non-distended, No tenderness Musculoskeletal: No clubbing Integumentary: Other (diffuse erythematous plaques and papules involving the trunk and bilateral upper/lower extremitis. Malar rash appreciated. Rash is much improved in redness compared to yesterday. certified home health aide - Agueda present for exam) Neurological: Normal speech, Normal affect Vital Signs/Physical Exam: Temp Pulse Resp BP Pulse Ox 98.2 F 76 16 137/64 96 03/12/23 15:44 03/12/23 15:44 03/12/23 15:44 03/12/23 15:44 03/12/23 15:44 Laboratory Data at Discharge: WBC 12.40 thou/uL (4.3-10.9) H 03/12/23 02:19 Hgb 12.3 g/dL (12.0-15.0) 03/12/23 02:19 Hct 37.2 % (36.0-45.0) 03/12/23 02:19 Plt Count 222 thou/uL (152-406) 03/12/23 02:19 Sodium 139 mEq/L (136-145) 03/12/23 02:19 Potassium 3.6 mEq/L (3.5-5.1) 03/12/23 02:19 BUN 11 mg/dL (7-18) 03/12/23 02:19 Creatinine 0.82 mg/dL (0.55-1.02) 03/12/23 02:19 Glucose 188 mg/dL (74-106) H 03/12/23 02:19 Total Bilirubin 0.4 mg/dL (0.2-1.0) 03/12/23 02:19 AST 44 U/L (15-37) H 03/12/23 02:19 ALT 47 U/L (13-56) 03/12/23 02:19 Alkaline Phosphatase 77 U/L (45-117) D 03/12/23 02:19 Home Medications: Cetirizine HCl [Zyrtec] 10 mg PO DAILY 03/11/23 Hydrochloroquine 200 mg PO BID 03/11/23 Leucovorin Calcium 5 mg PO DAILY 03/11/23 Losartan/Hydrochlorothiazide [Losartan-Hctz 100-25 mg Tab] 1 tab PO DAILY 03/11/23 Methotrexate [Methotrexate*] 2.5 mg PO EVERY 7TH DAY 03/11/23 Oseltamivir [Tamiflu*] 75 mg PO BID 3 Days #6 cap 03/12/23 hydrOXYzine HCL [Atarax*] 25 mg PO Q6HP PRN #60 tab 03/12/23 predniSONE [Deltasone*] See Rx Instructions .ROUTE .COMPLEX 21 Days #65 tab 03/12/23 New Medications: hydrOXYzine HCL [Atarax*] 25 mg PO Q6HP PRN #60 tab PRN Reason: Itching predniSONE [Deltasone*] See Rx Instructions .ROUTE .COMPLEX 21 Days #65 tab Oseltamivir [Tamiflu*] 75 mg PO BID 3 Days #6 cap Physician Discharge Instructions: 1. Please call and schedule a follow-up appointment with your PCP (Dr. Lafleur) in 3-5 days - As we discussed, your white blood cell count was elevated - most likely due to the steroids. Please have your PCP monitor your white blood cell count. - Your thyroid bloodwork was slightly abnormal. Please have your PCP repeat it in 1-2 weeks 2. Please call and schedule a follow-up appointment with your Sales Engagement Executive (Dr. Walsh) in 3-[address] or operate heavy machinery while taking hydroxyzine. If you have any questions regarding your hospital stay, please call [phone]. Diet: AHA Activity: Ad jesenia Followup: Hal Lafleur DO [Primary Care Provider] - 1 Week (please call to schedule an appointment) AGUSTÍN WALSH [OUTSIDE PHYSICIAN] - 1 Week (please call to schedule an appointment) Time spent managing pt's care (in minutes): 25
[2023-03-12 23:06] VITALS: BP 138/70; TEMP 97.3
== END 2023-03-12 21:50 | disposition home or self-care (01) | DRG 596 ==
LOC: ER 19:25 → ERHOLD 22:57 → 2ND 23:31
PROVIDERS: ADMIT Internal Medicine; ATTEND Internal Medicine
DX: L93.0 Discoid lupus erythematosus (principal); J10.1 Influenza due to other identified influenza virus with other respiratory manifestations; L23.89 Allergic contact dermatitis due to other agents; E87.6 Hypokalemia; I10 Essential (primary) hypertension; M06.9 Rheumatoid arthritis, unspecified; R21 Rash and other nonspecific skin eruption; R73.9 Hyperglycemia, unspecified; T38.0X5A Adverse effect of glucocorticoids and synthetic analogues, initial encounter; D72.829 Elevated white blood cell count, unspecified; E03.8 Other specified hypothyroidism; Z79.52 Long term (current) use of systemic steroids; Z90.49 Acquired absence of other specified parts of digestive tract; Z90.710 Acquired absence of both cervix and uterus; Z79.899 Other long term (current) drug therapy
CPT/HCPCS: 36415; 71045; 80053; 81001; 83605; 84145; 84439; 84443; 84484; 85025; 86140; 87040; 87635; 87804; 93005; 96374; 96375; 99285; J1200; J1650; J2920; J2930; J7030

== ENCOUNTER → 2023-08-13 | Emergency (ER) | payer BC ==
--- NOTE | 2023-08-13 19:19 | ER ---
Nurse's Notes [facility] Name: Yaneth Caldwell Age: 58 yrs Sex: Female : 1965 Arrival Date: 08/13/2023 Time: 17:06 Bed IW1 Private MD: Diagnosis: Influenza and COVID Presentation: 08/13 17:22 Chief complaint: Patient states: flu symptoms since Wednesday, had teleconference with ko1 PCP, started on tamiflu and tesslon pearls but not any better. Congested, cough, weak, body aches, headache, sneezing, sore from coughing. Coronavirus screen: congestion, cough unrelated to allergies, fatigue, headache, muscle pain, Client presents with at least one sign or symptom that may indicate coronavirus-19. Standard/surgical mask placed on the client. Ebola Screen: No symptoms or risks identified at this time. Initial Sepsis Screen: Does the patient meet any 2 criteria? No. Patient's initial sepsis screen is negative. Does the patient have a suspected source of infection? No. Patient's initial sepsis screen is negative. Risk Assessment: Do you want to hurt yourself or someone else? Patient reports no desire to harm self or others. Onset of symptoms is unknown. 17:22 Method Of Arrival: Ambulatory ko1 17:22 Acuity: ELVIA 4 ko1 Triage Assessment: 17:29 General: Appears in no apparent distress. Behavior is calm, cooperative, appropriate ko1 for age. Pain: Complains of pain in generalized body aches. Historical: - Allergies: 17:29 Humira(CF); ko1 - PMHx: 17:29 RA; Hypertensive disorder; ko1 - Immunization history:: Adult Immunizations unknown. - Social history:: Smoking status: Patient denies any tobacco usage or history of. Screenin:42 [facility] ED Fall Risk Assessment (Adult) History of falling in the last 3 months, bp including since admission No falls in past 3 months (0 pts). Abuse screen: Denies threats or abuse. Denies injuries from another. Nutritional screening: No deficits noted. Tuberculosis screening: No symptoms or risk factors identified. Vital Signs: 17:22 BP 137 / 94; Pulse 80; Resp 16; Temp 98.2; Pulse Ox 99% ; ko1 ED Course: 17:07 Patient arrived in ED. ts1 17:14 Van Gordon MD is Attending Physician. kdr 17:29 Triage completed. ko1 17:29 Arm band placed on right wrist. Patient placed in waiting room, Patient notified of ko1 wait time. 18:32 Flu Sent. ko1 18:32 COVID-19 SARS RT PCR Sent. ko1 19:42 Patient has correct armband on for positive identification. bp 19:42 No provider procedures requiring assistance completed. Patient did not have IV access bp during this emergency room visit. Administered Medications: No medications were administered Outcome: 19:19 Discharge ordered by . kdr 19:42 Discharged to home ambulatory, with family, bp 19:42 Condition: stable 19:42 Discharge instructions given to patient, Instructed on discharge instructions, follow up and referral plans. medication usage, Demonstrated understanding of instructions, follow-up care, medications, Prescriptions given X 1, 19:43 Patient left the ED. bp Signatures: Van Gordon MD MD kdr Efrain Beckman RN RN bp Sharifa Ahn RN RN ko1 Kathleen Gonzales PAS PAS ts1 Corrections: (The following items were deleted from the chart) 17:32 17:29 Allergies: No Known Allergies; ko1 ko1
--- NOTE | 2023-08-13 19:19 | EDPHYS ---
Physician Documentation [facility] Name: Yaneth Caldwell Age: 58 yrs Sex: Female : 1965 Arrival Date: 08/13/2023 Time: 17:06 Bed IW1 Private MD: ED Physician Van Gordon HPI: 08/13 20:56 This 58 yrs old Female presents to ER via Ambulatory with complaints of Flu Symptoms. kdr 20:56 The patient generally feels poorly all over. She has been ill for about 4 to 5 days.. kdr 20:57 Patient had a teleconference with her PCP who started her on Tamiflu and Tessalon kdr Perles but she is not feeling any better. She complains of cough congestion body aches headache sneezing and she is generally sore in her chest wall from coughing. Patient is hoping that she will get an antibiotic shot. Onset: The symptoms/episode began/occurred gradually, 4 day(s) ago. Severity of symptoms: At their worst the symptoms were mild moderate in the emergency department the symptoms are unchanged. The patient has not experienced similar symptoms in the past. The patient has been recently seen by a physician: the patient's primary care provider. Historical: - Allergies: 17:29 Humira(CF); ko1 - PMHx: 17:29 RA; Hypertensive disorder; ko1 - Immunization history:: Adult Immunizations unknown. - Social history:: Smoking status: Patient denies any tobacco usage or history of. ROS: 20:57 Constitutional: Negative for weight loss, she has had subjective fever and chills. kdr Eyes: Negative for injury, pain, redness, and discharge, Neck: Negative for injury, pain, and swelling, Cardiovascular: Negative for chest pain, palpitations, and edema, Respiratory: Negative for shortness of breath, cough, wheezing, and pleuritic chest pain, Abdomen/GI: Negative for abdominal pain, nausea, vomiting, diarrhea, and constipation, Back: Negative for injury and pain, : Negative for injury, bleeding, discharge, and swelling, 20:57 MS/Extremity: Negative for injury and deformity, Skin: Negative for injury, rash, and discoloration, Psych: Negative for depression, anxiety, suicide ideation, homicidal ideation, and hallucinations, Allergy/Immunology: Negative for hives, rash, and allergies, Endocrine: Negative for neck swelling, polydipsia, polyuria, polyphagia, and marked weight changes, Hematologic/Lymphatic: Negative for swollen nodes, abnormal bleeding, and unusual bruising, 20:57 Abdomen/GI: Positive for nausea, Exam: 20:57 Constitutional: This is a well developed, well nourished patient who is awake, alert, kdr and in no acute distress. Head/Face: Normocephalic, atraumatic. Eyes: Pupils equal round and reactive to light, extra-ocular motions intact. Lids and lashes normal. Conjunctiva and sclera are non-icteric and not injected. Cornea within normal limits. Periorbital areas with no swelling, redness, or edema. Neck: Trachea midline, no thyromegaly or masses palpated, and no cervical lymphadenopathy. Supple, full range of motion without nuchal rigidity, or vertebral point tenderness. No Meningismus. Chest/axilla: Normal chest wall appearance and motion. Nontender with no deformity. No lesions are appreciated. Cardiovascular: Regular rate and rhythm with a normal S1 and S2. No gallops, murmurs, or rubs. Normal PMI, no JVD. No pulse deficits. Respiratory: Lungs have equal breath sounds bilaterally, clear to auscultation and percussion. No rales, rhonchi or wheezes noted. No increased work of breathing, no retractions or nasal flaring. Abdomen/GI: Soft, non-tender, with normal bowel sounds. No distension or tympany. No guarding or rebound. No evidence of tenderness throughout. Back: No spinal tenderness. No costovertebral tenderness. Full range of motion. Skin: Warm, dry with normal turgor. Normal color with no rashes, no lesions, and no evidence of cellulitis. MS/ Extremity: Pulses equal, no cyanosis. Neurovascular intact. Full, normal range of motion. Neuro: Awake and alert, GCS 15, oriented to person, place, time, and situation. Cranial nerves II-XII grossly intact. Motor strength 5/5 in all extremities. Sensory grossly intact. Cerebellar exam normal. Normal gait. Psych: Awake, alert, with orientation to person, place and time. Behavior, mood, and affect are within normal limits. Vital Signs: 17:22 BP 137 / 94; Pulse 80; Resp 16; Temp 98.2; Pulse Ox 99% ; ko1 MDM: 19:19 Patient medically screened. kdr 20:57 Data reviewed: vital signs, nurses notes, lab test result(s), radiologic studies. ED kdr course: Along with the patient, I called her PCPs office and spoke to the physician on-call who was able to look into the EMR and determined that the patient and had a flu a and B as well as COVID drawn. The results showed that she was positive for all elements at the doctor's office today and had been started on Tamiflu. She was not given Paxil bid at that time.. 08/13 17:14 Order name: COVID-19 SARS RT PCR; Complete Time: 19:15 kdr 08/13 17:14 Order name: Flu; Complete Time: 19:15 kdr Administered Medications: No medications were administered Disposition Summary: 08/13/23 19:19 Discharge Ordered Notes: Continue your Tamiflu as previously directed until complete Location: Home kdr Problem: new kdr Symptoms: have improved kdr Condition: Stable kdr Diagnosis - Influenza and COVID kdr Followup: kdr - With: Private Physician - When: 2 - 3 days - Reason: If symptoms return, Further diagnostic work-up, Recheck today's complaints, Continuance of care, Re-evaluation by your physician Discharge Instructions: - Discharge Summary Sheet kdr - COVID-19 kdr - 10 Things You Can Do to Manage Your COVID-19 Symptoms at Home - [facility] (03/07/2021) kdr Forms: - Medication Reconciliation Form kdr - Thank You Letter kdr - Antibiotic Education kdr - Patient Portal Instructions kdr - Leadership Thank You Letter kdr Prescriptions: - Paxlovid 300 mg (150 mg x 2)-100 mg Oral Tablet, Dose Pack - take 1 dose pack ORAL route per package directions for 5 days; 10 Pack; kdr Refills: 0, Product Selection Permitted Signatures: Dispatcher [employer] [facility] Van Gordon MD MD kdr Sharifa Ahn RN RN ko1 Corrections: (The following items were deleted from the chart) 17:32 17:29 Allergies: No Known Allergies; ko1 ko1
[2023-08-13 21:02] VITALS: BP 137/94; TEMP 98.2; O2SAT 99
== END ==
LOC: ER 17:06
DX: U07.1 COVID-19 (principal); J11.1 Influenza due to unidentified influenza virus with other respiratory manifestations; I10 Essential (primary) hypertension; Z88.8 Allergy status to other drugs, medicaments and biological substances
CPT/HCPCS: 87635; 87804; 99283

== ENCOUNTER 2024-06-23 18:31 | Emergency (ER) | payer BC ==
[2024-06-23] MEDS ORDERED: MUPIROCIN 2% OINT 22GM TUBE TOP ONE (19:47)
[2024-06-23] MEDS ORDERED: HYDROCODONE/APAP 5/325 MG TAB ONE (19:48)
--- NOTE | 2024-06-23 20:36 | RAD REPORT ---
EXAM: Foot Right 2 View HISTORY: SWELLING COMPARISON: 02/11/14 FINDINGS: Bones: No acute fracture identified. Bipartite medial sesamoid. Alignment:No significant malalignment. Degenerative changes:Plantar aspect calcaneal spur. Midfoot degenerative changes. Other: n/a IMPRESSION: No evidence of acute osseous abnormality involving the imaged foot. No radiopaque foreign body.
--- NOTE | 2024-06-23 20:49 | EDPHYS ---
Physician Documentation [facility] Name: Yaneth Caldwell Age: 58 yrs Sex: Female : 1965 Arrival Date: 06/23/2024 Time: 18:31 Bed 10 Private MD: ED Physician James Patiño HPI: 06/23 19:58 This 58 yrs old Female presents to ER via Wheelchair with complaints of Fall gb1 Injury, Leg Pain, Puncture Wound To Hand. 19:58 58-year-old female was getting ready for garage sale and tripped and fell back onto a gb1 sharp edge of a metal lighting fixture. She has right foot pain and an abrasion on the right anterior gill as well as right hip pain. She denies any head strike or loss of consciousness. She is not on any blood thinning medication and she did not hit her head.. Historical: - Allergies: 18:45 Humira(CF); aa5 - PMHx: 18:45 Hypertensive disorder; RA; aa5 - Immunization history:: Last tetanus immunization: < 5 years ago. - Infectious Disease History:: Denies. - Social history:: Smoking status: Patient denies any tobacco usage or history of. Exam: 19:58 Constitutional: This is a well developed, well nourished patient who is awake, alert, gb1 and in no acute distress. Head/Face: Normocephalic, atraumatic. Eyes: Pupils equal round and reactive to light, extra-ocular motions intact. Lids and lashes normal. Conjunctiva and sclera are non-icteric and not injected. Cornea within normal limits. Periorbital areas with no swelling, redness, or edema. Neck: Trachea midline, no thyromegaly or masses palpated, and no cervical lymphadenopathy. Supple, full range of motion without nuchal rigidity, or vertebral point tenderness. No Meningismus. Chest/axilla: Normal chest wall appearance and motion. Nontender with no deformity. No lesions are appreciated. Cardiovascular: Regular rate and rhythm with a normal S1 and S2. No gallops, murmurs, or rubs. Normal PMI, no JVD. No pulse deficits. Back: No spinal tenderness. No costovertebral tenderness. Full range of motion. MS/ Extremity: Pulses equal, no cyanosis. Neurovascular intact. Full, normal range of motion. Patient has a half a centimeter stellate wound in between the first and second digit, she has 2 superficial abrasions to the right anterior midshaft calf as well as focal swelling to the dorsum of the right foot. Vital Signs: 18:44 BP 159 / 87; Pulse 82; Resp 19 S; Temp 97.5(TE); Pulse Ox 98% on R/A; Weight 104.33 kg aa5 (R); Height 5 ft. 4 in. (R); 20:52 BP 142 / 78; Pulse 73; Resp 17; Temp 98.4; Pulse Ox 100% ; me1 18:44 Body Mass Index 39.48 (104.33 kg, 162.56 cm) aa5 MDM: 18:49 Medical Screening Exam initiated gb1 19:58 Data reviewed: vital signs, nurses notes. ED course: 58-year-old female status post a gb1 ground-level fall with a small laceration to the right intertriginous area between the first and second digit, and abrasion to the right anterior gill and swelling to the right foot. She is no ankle deformity or swelling. She is able to range the right hip and able to walk without assistance. I doubt acute hip fracture or dislocation. Patient refused sutures of the 1/2 cm stellate wound between the first and second digits. She opted for Steri-Strip. I reviewed wound care with her and she will return as needed explicit return precautions that were given prior to discharge home today.. 06/23 19:44 Order name: Foot Right 2 View XRAY; Complete Time: 20:43 gb1 06/23 19:44 Order name: Wound Care; Complete Time: 19:57 gb1 06/23 19:44 Order name: Wound dressing; Complete Time: 20:26 gb1 Administered Medications: 19:57 Drug: Mupirocin Topical Ointment 2 % 1 application Topical once {Note: right knee.} me1 Route: Topical; Site: wound; 19:57 Follow up: Response: No adverse reaction me1 19:57 Drug: HYDROcodone-acetaminophen PO 5 mg-325 mg 1 tabs PO once Route: PO; me1 20:25 Follow up: Response: No adverse reaction; Pain is decreased me1 Disposition Summary: 06/23/24 20:48 Discharge Ordered Notes: Location: Home camrina Problem: new carmina Symptoms: have improved carmina Condition: Stable carmina Diagnosis - Laceration without foreign body of right hand carmina - Laceration without foreign body, right lower leg carmina - Contusion of right foot carmina Followup: carmina - With: Private Physician - When: 2 - 3 days - Reason: Recheck today's complaints, Continuance of care, Re-evaluation by your physician Followup: carmina - With: Aiden Martinez MD - When: 2 - 3 days - Reason: Recheck today's complaints, Continuance of care, Re-evaluation by your physician Discharge Instructions: - Discharge Summary Sheet carmina - Foot Contusion carmina - Foot Sprain carmina - Laceration Care, Adult carmina - Laceration Care, Adult, Dyes-ck-Adxj carmina - Foot Contusion, Httt-ak-Pdkw carmina - Foot Pain [facility] Forms: - Medication Reconciliation Form [facility] - Antibiotic Education carmina - Prescription Opioid Use carmina - Patient Portal Instructions [facility] - Leadership Thank You Letter [facility] Prescriptions: - Centany 2 % Topical ointment - apply 1 application TOPICAL route 3 times per day; 15 gram tube; Refills: 0, [facility] Product Selection Permitted - acetaminophen-codeine 300-30 mg Oral tablet - take 2 tablet ORAL route every 6 hours as needed for pain; 20 tablet; Refills: carmina 0, Product Selection Permitted - Cephalexin 500 mg Oral capsule - take 1 capsule ORAL route every 6 hours for 7 days; 28 capsule; Refills: 0, [facility] Product Selection Permitted Signatures: Dispatcher [employer] James Severino MD MD cha Calderon, Audri RN RN aa5 Keila Klein RN RN me1 Rianna Cook MD MD gb1
--- NOTE | 2024-06-23 20:49 | ER ---
Nurse's Notes [facility] Name: Yaneth Caldwell Age: 58 yrs Sex: Female : 1965 Arrival Date: 06/23/2024 Time: 18:31 Bed 10 Private MD: Diagnosis: Laceration without foreign body of right hand;Laceration without foreign body, right lower leg;Contusion of right foot Presentation: 06/23 18:44 Chief complaint: Patient states: "I tripped and fell and I scraped my leg on a metal aa5 box thing and I cut my hand, and my ankle (right) is hurting". Denies head injury. Coronavirus screen: At this time, the client does not indicate any symptoms associated with coronavirus-19. Ebola Screen: Patient denies travel to an Ebola-affected area in the 21 days before illness onset. Initial Sepsis Screen: Does the patient meet any 2 criteria? No. Patient's initial sepsis screen is negative. Does the patient have a suspected source of infection? No. Patient's initial sepsis screen is negative. Risk Assessment: Do you want to hurt yourself or someone else? Patient reports no desire to harm self or others. Onset of symptoms was June 23, 2024. 18:44 Method Of Arrival: Wheelchair aa5 18:44 Acuity: ELVIA 3 aa5 Historical: - Allergies: 18:45 Humira(CF); aa5 - PMHx: 18:45 Hypertensive disorder; RA; aa5 - Immunization history:: Last tetanus immunization: < 5 years ago. - Infectious Disease History:: Denies. - Social history:: Smoking status: Patient denies any tobacco usage or history of. Screenin:14 [facility] ED Fall Risk Assessment (Adult) History of falling in the last 3 months, me1 including since admission Yes- single mechanical fall (1 pt) Confusion or Disorientation No (0 pts) Intoxicated or Sedated No (0 pts) Impaired Gait No (0 pts) Mobility Assist Device Used No (0 pt) Altered Elimination No (0 pt) Score/Fall Risk Level 0 - 2 = Low Risk Maintained a safe environment, Provided non-skid footwear, Hourly rounding (assess needs \\T\\ fall precautionary measures) done. Abuse screen: Denies threats or abuse. Nutritional screening: No deficits noted. Tuberculosis screening: No symptoms or risk factors identified. Assessment: 19:14 General: Appears uncomfortable, obese, Behavior is calm, cooperative, appropriate for me1 age, Reports "I tripped and fell and I scraped my leg on a metal box thing and I cut my hand, and my ankle (right) is hurting". Denies head injury. Pain: Complains of pain in right hand and right leg Pain does not radiate. Pain currently is 10 out of 10 on a pain scale. Quality of pain is described as sharp, Pain began suddenly, Is continuous. Neuro: Level of Consciousness is awake, alert, obeys commands, Oriented to person, place, time, situation, Appropriate for age. Cardiovascular: Patient's skin is warm and dry. Respiratory: Airway is patent Respiratory effort is even, unlabored, Respiratory pattern is regular, symmetrical. GI: No signs and/or symptoms were reported involving the gastrointestinal system. : No signs and/or symptoms were reported regarding the genitourinary system. EENT: No signs and/or symptoms were reported regarding the EENT system. Derm: Wound noted Right first web space Wound is puncture. Derm: Wound noted right knee Wound is abrasion/skin tear. Musculoskeletal: Reports pain in right hand and right leg. Injury Description: Puncture sustained to Right first web space abrasion/skin tear to right knee. Pain to right ankle. Vital Signs: 18:44 BP 159 / 87; Pulse 82; Resp 19 S; Temp 97.5(TE); Pulse Ox 98% on R/A; Weight 104.33 kg aa5 (R); Height 5 ft. 4 in. (R); 20:52 BP 142 / 78; Pulse 73; Resp 17; Temp 98.4; Pulse Ox 100% ; me1 18:44 Body Mass Index 39.48 (104.33 kg, 162.56 cm) aa5 ED Course: 18:35 Patient arrived in ED. mg5 18:44 Arm band placed on. aa5 18:45 Triage completed. aa5 18:47 Rianna Cook MD is Attending Physician. gb1 19:07 Keila Klein, BARBARA is Primary Nurse. me1 19:14 Patient has correct armband on for positive identification. Bed in low position. Call me1 light in reach. Side rails up X 1. Provided Education on: POC. Verbalized understanding. . 19:14 No provider procedures requiring assistance completed. me1 20:24 Foot Right 2 View XRAY In Process Unspecified. EDMS 20:43 Attending Physician role handed off by Rianna Cook MD cha 20:43 Jamse Patiño MD is Attending Physician. [facility] 20:44 James Patiño MD is Attending Physician. [facility] 20:47 Aiden Martinez MD is Referral Physician. [facility] 20:53 Patient did not have IV access during this emergency room visit. me1 Administered Medications: 19:57 Drug: Mupirocin Topical Ointment 2 % 1 application Topical once {Note: right knee.} me1 Route: Topical; Site: wound; 19:57 Follow up: Response: No adverse reaction me1 19:57 Drug: HYDROcodone-acetaminophen PO 5 mg-325 mg 1 tabs PO once Route: PO; me1 20:25 Follow up: Response: No adverse reaction; Pain is decreased me1 Medication: 20:26 VIS not applicable for this client. me1 Outcome: 20:48 Discharge ordered by . [facility] 21:05 Discharged to home via wheelchair, with significant other, me1 21:05 Condition: stable 21:05 Discharge instructions given to patient, significant other, Instructed on discharge instructions, follow up and referral plans. medication usage, wound care, Demonstrated understanding of instructions, follow-up care, medications, wound care, Prescriptions given X 1, 21:05 Patient left the ED. me1 Signatures: Dispatcher [employer] [facility] James Patiño MD MD cha Calderon, Audri, RN RN aa5 Keila Klein RN RN nm1 Dorcas Martins mg5 Rianna Cook MD MD gb1 Corrections: (The following items were deleted from the chart) 19:12 18:44 Chief complaint: Patient states: "I tripped and fell and I scraped my leg on a me1 metal box thing and I cut my hand, and my ankle (right) is hurting". Denies head injury. aa5
[2024-06-23 21:11] VITALS: BP 142/78; TEMP 98.4; O2SAT 100
== END 2024-06-23 21:05 | disposition home or self-care (01) ==
LOC: ER 18:31
DX: S61.411A Laceration without foreign body of right hand, initial encounter (principal); S81.811A Laceration without foreign body, right lower leg, initial encounter; S90.811A Abrasion, right foot, initial encounter; M25.551 Pain in right hip; W01.118A Fall on same level from slipping, tripping and stumbling with subsequent striking against other sharp object, initial encounter
CPT/HCPCS: 99283

== ENCOUNTER 2025-01-13 11:51 | Emergency (ER) | payer BC ==
[2025-01-13] MEDS ORDERED: LIDOCAINE 1% MPF 30 ML VIAL ONE (12:27)
--- NOTE | 2025-01-13 12:50 | RAD REPORT ---
EXAM: Hand Right 3 View HISTORY: SMASH INJURY COMPARISON: None FINDINGS: Bones: No acute fracture identified. Alignment:Widened scapholunate interval likely reflecting chronic ligamentous injury. Degenerative changes:Degenerative changes are present at the first MCP joint, first interphalangeal j oint, and at the base of the thumb. Other: No radiopaque foreign body. IMPRESSION: No acute osseous abnormality involving the imaged hand. No radiopaque foreign body.
--- NOTE | 2025-01-13 13:40 | ER ---
Nurse's Notes [facility] Name: Yaneth Caldwell Age: 59 yrs Sex: Female : 1965 Arrival Date: 01/13/2025 Time: 11:51 Bed 11 Private MD: Diagnosis: Laceration without foreign body of right index finger without damage to nail Presentation: 01/13 12:25 Chief complaint: Patient states: smashed my right index finger in the buggies at [facility] [employer] where I work, they think it needs stitches. Coronavirus screen: At this time, the client does not indicate any symptoms associated with coronavirus-19. Onset of symptoms was January 13, 2025. 12:25 Method Of Arrival: Ambulatory iw 12:25 Acuity: ELVIA 4 iw 12:26 Ebola Screen: No symptoms or risks identified at this time. Initial Sepsis Screen: Does iw the patient meet any 2 criteria? No. Patient's initial sepsis screen is negative. Does the patient have a suspected source of infection? No. Patient's initial sepsis screen is negative. Risk Assessment: Do you want to hurt yourself or someone else? Patient reports no desire to harm self or others. Historical: - Allergies: 12:26 Humira(CF); iw - PMHx: 12:26 Hypertensive disorder; RA; iw Assessment: 14:08 Reassessment: Patient appears in no apparent distress at this time. Patient and/or iw family updated on plan of care and expected duration. Pain level reassessed. Patient is alert, oriented x 3, equal unlabored respirations, skin warm/dry/pink. Vital Signs: 12:30 BP 142 / 87; Pulse 76; Resp 16; Pulse Ox 98% on R/A; iw ED Course: 11:56 Patient arrived in ED. im 12:04 James Patiño MD is Attending Physician. iw 12:04 Zachary Nixon FNP-C is PHCP. iw 12:26 Triage completed. iw 12:27 Arm band placed on. iw 12:36 Angeline Fairchild, BARBARA is Primary Nurse. iw 12:43 Hand Right 3 View XRAY In Process Unspecified. EDMS Administered Medications: 13:07 Drug: Lidocaine Infiltration (1 %) 20 ml 20 ml Infiltration once; to bedside Volume: 20 iw ml; Route: Infiltration; Outcome: 13:40 Discharge ordered by . juan pablo 14:08 Discharged to home ambulatory, iw 14:08 Condition: good 14:08 Discharge instructions given to patient, Instructed on discharge instructions, follow up and referral plans. Demonstrated understanding of instructions, follow-up care, medications, Prescriptions given X 1, 14:08 Patient left the ED. iw Signatures: Dispatcher [employer] Angeline Shelby RN RN iw Tess Atwood Dustin, CASTING MACHINE CONTROL BOARD OPERATOR-C CASTING MACHINE CONTROL BOARD OPERATOR-Cdr5 Corrections: (The following items were deleted from the chart) 14: 12:00 BP 142 / 87; Pulse 76bpm; Resp 16bpm; Pulse Ox 98% RA; iw iw
--- NOTE | 2025-01-13 13:40 | EDPHYS ---
Physician Documentation [facility] Name: Yaneth Caldwell Age: 59 yrs Sex: Female : 1965 Arrival Date: 01/13/2025 Time: 11:51 Bed 11 Private MD: ED Physician James Patiño HPI: 01/13 14:09 This 59 yrs old Female presents to ER via Ambulatory with complaints of dr5 Finger Injury - right hand index finger. 14:09 Trauma demographics: County: The injury occurred in [place] Location of Injury: The dr5 injury occurred at work, Date: January 13, 2025, Time: 10:00. Mechanism of injury: Crush injury: from Shopping Cart. Associated injuries: The patient sustained dorsal aspect of distal phalanx of right index finger. Patient is a 5-year-old female with history of hypertension and RA coming in with right index finger injury that occurred when shopping cart smashed it. Patient reported the injury to [facility] and was advised to come to ER for evaluation.. Historical: - Allergies: 12:26 Humira(CF); iw - PMHx: 12:26 Hypertensive disorder; RA; iw ROS: 14:09 Constitutional: as per hpi dr5 Exam: 14:09 Constitutional: This is a well developed, well nourished patient who is awake, alert, dr5 and in no acute distress. Head/Face: Normocephalic, atraumatic. Eyes: Pupils equal round and reactive to light, extra-ocular motions intact. Lids and lashes normal. Conjunctiva and sclera are non-icteric and not injected. Cornea within normal limits. Periorbital areas with no swelling, redness, or edema. Neck: Trachea midline, no thyromegaly or masses palpated, and no cervical lymphadenopathy. Supple, full range of motion without nuchal rigidity, or vertebral point tenderness. No Meningismus. Chest/axilla: Normal chest wall appearance and motion. Nontender with no deformity. No lesions are appreciated. Cardiovascular: Regular rate and rhythm with a normal S1 and S2. Normal PMI, no JVD. No pulse deficits. Respiratory: Lungs have equal breath sounds bilaterally, clear to auscultation. No rales, rhonchi or wheezes noted. No increased work of breathing, no retractions or nasal flaring. Back: No spinal tenderness. No costovertebral tenderness. Full range of motion. Skin: Warm, dry with normal turgor. Normal color with no rashes, no lesions, and no evidence of cellulitis. Neuro: Awake and alert, GCS 15, oriented to person, place, time, and situation. Cranial nerves II-XII grossly intact. Motor strength 5/5 in all extremities. Sensory grossly intact. Cerebellar exam normal. Normal gait. 14:09 Musculoskeletal/extremity: Extremities: noted in the dorsal aspect of distal phalanx of right index finger: laceration, ROM: no acute changes, intact in all extremities, Circulation is intact in all extremities. Sensation intact. 14:09 Skin: injury, laceration(s), the wound is approximately 2 cm(s), with a depth of .5 cm(s), of the dorsal aspect of distal phalanx of right index finger, 14:09 Neuro: Exam negative for acute changes, Vital Signs: 12:30 BP 142 / 87; Pulse 76; Resp 16; Pulse Ox 98% on R/A; iw Procedures: 14:09 Splinting: Splint applied to dorsal aspect of distal phalanx of right index finger dr5 using finger splint, applied by nurse. Examined by me, post splint application: neurovascular intact, 2+ distal pulses palpable, brisk capillary refill noted, Patient tolerated well. Laceration: 14:09 Wound Repair of 2cm ( 0.8in ) subcutaneous laceration to dorsal aspect of distal dr5 phalanx of right index finger. Linear shaped.. Distal neuro/vascular/tendon intact. Anesthesia: Digital block administered with 2 mls of 1% lidocaine. Wound prep: Simple cleansing. Skin closed with 2 4-0 Prolene using simple sutures and sterile technique. Dressed with non-adherent dressing. Patient tolerated well. MDM: 12:21 Medical Screening Exam initiated dr5 14:09 Differential diagnosis: Fracture, Sprain, Laceration, Strain. Data reviewed: vital dr5 signs, nurses notes, radiologic studies, plain films. I considered the following discharge prescriptions or medication management in the emergency department Medications were administered in the Emergency Department. See MAR. Care significantly affected by the following chronic conditions: Hypertension, RA. Care significantly affected by the following Social Determinants of Health: Poor access to healthcare and/or lack of insurance, Poor access to transportation, Problems related to employment. Counseling: I had a detailed discussion with the patient and/or guardian regarding the historical points, exam findings, and any diagnostic results supporting the discharge/admit diagnosis, the presence of at least one elevated blood pressure reading (>120/80) during this emergency department visit, radiology results, the need for outpatient follow up, for definitive care, a family practitioner, a orthopedic surgeon, to return to the emergency department if symptoms worsen or persist or if there are any questions or concerns that arise at home. ED course: Regional block completed with lidocaine without epinephrine achieved complete anesthesia. 2 sutures placed without complication. Patient reports having tetanus within the last year. Recommend alternating Tylenol Motrin as needed for pain and fever. Splint placed for comfort. Recommended having sutures removed in 7 to 10 days. X-ray report was printed and given to patient in case patient follows Workmen's Comp. All questions answered.. 01/13 12:31 Order name: Hand Right 3 View XRAY; Complete Time: 12:55 [facility] 01/13 12:32 Order name: Dressing - Wound; Complete Time: 14:07 [facility] 01/13 12:32 Order name: Prolene, Sutures: 4-0 prolene; Complete Time: 14:07 [facility] 01/13 12:32 Order name: Setup Suture Tray; Complete Time: 14:07 [facility] 01/13 13:32 Order name: Finger Splint; Complete Time: 14:07 dr5 Administered Medications: 13:07 Drug: Lidocaine Infiltration (1 %) 20 ml 20 ml Infiltration once; to bedside Volume: 20 iw ml; Route: Infiltration; Disposition Summary: 01/13/25 13:40 Discharge Ordered Notes: Location: Home dr5 Condition: Stable dr5 Diagnosis - Laceration without foreign body of right index finger without damage to nail dr5 Followup: dr5 - With: Emergency Department - When: As needed - Reason: Worsening of condition Followup: dr5 - With: Private Physician - When: 7 - 10 days - Reason: Staple/Suture removal Discharge Instructions: - Discharge Summary Sheet dr5 - Cast or Splint Care, Adult dr5 - Laceration Care, Adult dr5 Forms: - Work release form dr5 - Medication Reconciliation Form dr5 - Antibiotic Education dr5 - Patient Portal Instructions dr5 - Leadership Thank You Letter dr5 Prescriptions: - Cephalexin 500 mg Oral Capsule - take 1 capsule ORAL route every 12 hours for 10 days; 20 capsule; Refills: 0, dr5 Product Selection Permitted Addendum: 01/15/2025 12:34 Co-signature as Attending Physician, James Patiño MD I agree with the assessment and c arndt plan of care. Signatures: Dispatcher [employer] James Severino MD MD cha Williams, Irene, RN Zachary Martinez, INFORMATION SYSTEMS SECURITY SPECIALIST-C INFORMATION SYSTEMS SECURITY SPECIALIST-Cdr5
[2025-01-13 14:13] VITALS: BP 142/87; O2SAT 98
== END 2025-01-13 14:08 | disposition home or self-care (01) ==
LOC: ER 11:51
DX: S61.210A Laceration without foreign body of right index finger without damage to nail, initial encounter (principal); W23.0XXA Caught, crushed, jammed, or pinched between moving objects, initial encounter
CPT/HCPCS: 12001; 73130; 99283; J2003